=== PATIENT | male | born 1985 | race Caucasian/White ===

== ENCOUNTER 2017-01-21 19:03 | Emergency (ER) | payer OTHER ==
[~2017-01-21] VITALS: Ht 188 cm; Wt 143.8 kg
[~2017-01-21 19:03] MED LIST: CHLORHEXIDINE FL1 ML; CLEOCIN HCL300 MG PO; COLACE 100 MG100 MG PO; FLEXERIL PO; HYDROCHLOROTHIA25 M2 PO; HYDROCODON-ACE1 EAC5 PO; HYDROCODONE-AP1 EAC6 PO; HYDROCODONE-APA1 TA1; HYDROCODONE-APA10 ML PO; IBUPROFEN 800800 M1 PO; KLONOPIN1 MG PO; KLOR-CON 1010 MEQ PO; LASIX 20 MG TAB20 MG PO; NOHOMEMEDICATIONS; NORCO 5-325 TA1 EAC1 PO; NORCO 5-325 TA1 EACH PO; ONDANSETRON ODT4 MG PO; PERCOCET 5-3251 EACH PO; PERCOCET PO; PHENERGAN 25 MG25 M1 PO; PHENERGAN25 M2 RC; RANITIDINE 150150 MG PO; ROBAXIN 750 MG750 M1 PO; ROBAXIN 750 MG750 MG PO; SEROQUEL 50 MG50 MG PO; TRIPLE ANTIBIOT28 G2 TP; XANAX 1 MG TABLE1 MG PO; ZOFRAN ODT4 MG PO; ZOFRAN ODT8 MG PO
[2017-01-21 19:49] LABS: URINE BILIRUBIN NEGATIVE (Negative); URINE BLOOD NEGATIVE (Negative); URINE COLOR YELLOW; URINE GLUCOSE-RANDOM* NEGATIVE (Negative); URINE KETONES NEGATIVE (Negative); URINE NITRITE NEGATIVE (Negative); URINE PROTEIN (DIPSTICK) NEGATIVE (Negative); URINE SPECIFIC GRAVITY >= 1.030 (1.003-1.035); URINE UROBILINOGEN 0.2 E.U./dl (0.2-1.0)
[2017-01-21] MEDS ORDERED: PEPTO-BISM262 MG/15 PO (20:17)
[2017-01-21 20:38] LABS: HEMATOCRIT 45.9 % (42.0-52.0); HEMOGLOBIN 15.8 gm/dL (14.0-18.0); MANUAL DIFF YES; MCH 28.5 pg (26.0-34.0); MCHC 34.4 g/dL (28.0-37.0); MCV 82.7 fL (80.0-100.0); PLATELET COUNT 186 thou/uL (150-400); RBC 5.54 mil/uL (4.50-6.00); RDW 13.1 % (10.5-14.5); WBC 6.9 thou/uL (4.0-11.0)
[2017-01-21 20:52] LABS: ALBUMIN 3.8 g/dL (3.4-5.0); CALCIUM 9.1 mg/dL (8.5-10.1); CREATININE 1.1 mg/dL (0.7-1.3); POTASSIUM 4.2 mmol/L (3.5-5.1); TOTAL BILIRUBIN 0.9 mg/dL (<0.1-1.0); TOTAL PROTEIN 8.1 g/dL (6.4-8.2)
[2017-01-21 21:02] LABS: ABSOLUTE NEUTROPHILS 5.7 thou/uL (1.4-8.2); ANISOCYTOSIS 2+; POLYCHROMASIA OCCASIONAL; TOTAL CELL COUNT 100
[2017-01-21] MEDS ORDERED: FAMOTIDINE20 MG PO (22:04)
[2017-01-21] MEDS ORDERED: PHENERGAN 25 MG25 M1 PO (22:04)
[2017-01-21] MEDS ORDERED: CARAFATE 1 GM TA1 G1 PO (22:04)
== END 2017-01-21 22:06 | disposition home or self-care (01) ==
LOC: ER 19:03
PROVIDERS: Physician Assistant
DX: R10.13 Epigastric pain (principal); R11.2 Nausea with vomiting, unspecified; F10.99 Alcohol use, unspecified with unspecified alcohol-induced disorder; Z86.19 Personal history of other infectious and parasitic diseases; Z98.890 Other specified postprocedural states; Z87.891 Personal history of nicotine dependence